=== PATIENT | male | born 1985 | race Caucasian/White ===

== ENCOUNTER 2019-09-09 17:21 | Emergency (ER) | payer SELFPAY ==
[~2019-09-09] VITALS: Ht 170.2 cm; Wt 113.4 kg
[2019-09-09] MEDS ORDERED: FLUORESCEIN SOD 1 MG TEST STRIP EACHEYE ONE (20:15)
[2019-09-09] MEDS ORDERED: TETRACAINE HCL 0.5% OPTH(EYE) SOLN 4ML EACHEYE ONE (20:15)
[2019-09-09 20:29] VITALS: BP 141/83
== END 2019-09-09 20:56 | disposition home or self-care (01) ==
LOC: ER 17:21
DX: T15.01XA Foreign body in cornea, right eye, initial encounter (principal); X58.XXXA Exposure to other specified factors, initial encounter; Y93.89 Activity, other specified; Y92.89 Other specified places as the place of occurrence of the external cause; Y99.8 Other external cause status
CPT/HCPCS: 65222

== ENCOUNTER 2019-11-25 13:54 | Emergency (ER) | payer MEDICAID, OTHER ==
[~2019-11-25] VITALS: Ht 170.2 cm; Wt 117.9 kg
[2019-11-25 18:59] VITALS: BP 150/88
[2019-11-25] MEDS ORDERED: DexAMETHasone SOD PHOS 10MG/1ML VIAL INJ IM ONE (19:00)
[2019-11-25] MEDS ORDERED: BACLOFEN 10 MG TAB PO ONE (19:00)
== END 2019-11-25 19:32 | disposition home or self-care (01) ==
LOC: ER 13:54
DX: S86.912A Strain of unspecified muscle(s) and tendon(s) at lower leg level, left leg, initial encounter (principal); F17.210 Nicotine dependence, cigarettes, uncomplicated; X50.9XXA Other and unspecified overexertion or strenuous movements or postures, initial encounter; Y93.89 Activity, other specified; Y92.69 Other specified industrial and construction area as the place of occurrence of the external cause; Y99.8 Other external cause status
CPT/HCPCS: 96372; 99283; J1100

== ENCOUNTER 2022-11-16 21:30 | Emergency (ER) | payer OTHER ==
[~2022-11-16] VITALS: Ht 170.2 cm; Wt 118.0 kg
[2022-11-16 22:38] VITALS: BP 137/82
[2022-11-16] MEDS ORDERED: TETRACAINE HCL 0.5% OPTH(EYE) SOLN 4ML LEFTEYE ONE (22:45)
[2022-11-16] MEDS ORDERED: FLUORESCEIN SOD OPTH TEST STRIP LEFTEYE ONE (23:00)
[2022-11-16] MEDS ORDERED: ACETAMINOPHEN 500 MG TAB PO ONE (23:15)
[2022-11-16] MEDS ORDERED: HYDR-4902 PO (23:53)
[2022-11-16] MEDS ORDERED: POLYSOL15 OP (23:53)
== END 2022-11-17 00:03 | disposition home or self-care (01) ==
LOC: ER 21:30
DX: S05.02XA Injury of conjunctiva and corneal abrasion without foreign body, left eye, initial encounter (principal); F17.210 Nicotine dependence, cigarettes, uncomplicated; X58.XXXA Exposure to other specified factors, initial encounter; Y93.89 Activity, other specified; Y92.513 Shop (commercial) as the place of occurrence of the external cause; Y99.8 Other external cause status